=== PATIENT | male | born 1960 | race Caucasian/White ===

== ENCOUNTER → 2024-12-25 15:30 | Outpatient (REF) | payer BC, SELFPAY | LOC: MRI 3T 15:30 | PROVIDERS: ATTENDING PHYSICIAN Family Medicine | DX: M53.3 Sacrococcygeal disorders, not elsewhere classified (principal); M54.50 Low back pain, unspecified; M25.551 Pain in right hip; M76.31 Iliotibial band syndrome, right leg; M79.604 Pain in right leg | CPT/HCPCS: 72197; A9575 ==